=== PATIENT | male | born 1945 | race Two or more races ===

== ENCOUNTER 2021-03-26 13:16 | Outpatient (CLI) | payer OTHER | END 2021-03-26 16:22 | disposition home or self-care (01) | LOC: LAB 13:16 | PROVIDERS: ATTEND Radiology Diagnostic Radiology | DX: C61 Malignant neoplasm of prostate (principal) ==

== ENCOUNTER 2021-04-01 07:47 | Outpatient (CLI) | payer OTHER | END 2021-04-01 07:57 | disposition home or self-care (01) | LOC: MRI 07:47 | PROVIDERS: ATTEND Urology | DX: C61 Malignant neoplasm of prostate (principal) | CPT/HCPCS: 72197; A9575; 72196 ==